=== PATIENT | male | born 1995 | race Two or more races ===

== ENCOUNTER 2021-05-16 12:31 | Emergency (ER) | payer MEDICAID, OTHER ==
[~2021-05-16] VITALS: Ht 170.2 cm; Wt 68.0 kg
[2021-05-16] MEDS ORDERED: SODIUM CHLORIDE 0.9% 1,000 ML IV ONE ×2 (12:45)
[2021-05-16 13:28] LABS: Basophils # (auto) 0.1 10 ^3/uL (0-0.2); Basophils % (auto) 0.4 % (0.0-2.0); Eosinophils # (auto) 0.2 10 ^3/uL (0-0.8); Hematocrit 47.4 % (41.0-53.0); Hemoglobin 15.7 g/dL (13.5-17.5); Lymphocytes # (auto) 1.4 10 ^3/uL (0.4-5.4); Lymphocytes % (auto) 9.1 % (10.0-50.0); Mean Corpuscular Hemoglobin 31.5 pg (28.0-32.0); Mean Corpuscular Hgb Conc. 33.2 g/dL (32.0-36.0); Monocytes # (auto) 1.3 10 ^3/uL (0-1.3); Monocytes % (auto) 8.6 % (0.0-12.0); Neutrophils # (auto) 12.6 10 ^3/uL (1.6-8.6); Neutrophils % (auto) 80.9 % (37.0-80.0); Red Blood Cells 4.99 10^6/uL (4.5-5.90); Red Cell Distribution Width 15.3 % (11.8-14.3); White Blood Cell 15.6 10^3/uL (4.4-10.8)
[2021-05-16 13:35] LABS: Albumin 3.9 g/dL (3.4-5.0); Calcium 8.7 mg/dL (8.5-10.1); Potassium 3.8 mmol/L (3.5-5.1)
[2021-05-16 13:39] LABS: BUN/Creatinine Ratio 6.6; Bilirubin, Total 0.4 mg/dL (0.2-1.0); Total Protein 7.7 g/dL (6.4-8.2)
[2021-05-16] MEDS ORDERED: KETOROLAC TROMETH 30 MG/ML 1ML VIAL ONE (14:47)
[2021-05-16] MEDS ORDERED: KETOROLAC TROMETH 30 MG/ML 1ML VIAL IV ONE (15:00)
[2021-05-16 16:52] LABS: Urine WBC None Seen /hpf (0 - 3)
[2021-05-16 17:02] LABS: Urine Bacteria FEW /hpf (None Seen); Urine Blood Negative /uL (Negative); Urine Mucus FEW (None Seen); Urine Specific Gravity 1.017 (1.001-1.035)
[2021-05-16 17:15] LABS: Alcohol, Urine < 3.0 mg/dL (0-10); Amphetamine Screen, Urine POSITIVE (NEGATIVE); Barbiturate Scree,Urine NEGATIVE (NEGATIVE); Benzodiazephine Screen, Urine NEGATIVE (NEGATIVE); Cannabinoid Screen, Urine POSITIVE (NEGATIVE); Cocaine Screen, Urine NEGATIVE (NEGATIVE); Opiate Scree,Urine NEGATIVE (NEGATIVE); Phencyclidine Screen, Urine NEGATIVE (NEGATIVE)
[2021-05-16] MEDS ORDERED: cefTRIAXone 1GM/50ML D5W 50 ML IV ONE (17:45)
[2021-05-16 18:00] VITALS: BP 93/54
== END 2021-05-16 18:56 | disposition home or self-care (01) ==
LOC: EDBD 12:31 → ER 12:31
DX: R10.84 Generalized abdominal pain (principal); F15.10 Other stimulant abuse, uncomplicated; F17.210 Nicotine dependence, cigarettes, uncomplicated
CPT/HCPCS: 36415; 74176; 80053; 80307; 81001; 83690; 85025; 93005; 96361; 96365; 96375; 99285; J0696; J1885; J7030

== ENCOUNTER 2023-05-02 23:41 | Emergency (ER) | payer SELFPAY ==
[~2023-05-02] VITALS: Ht 180.3 cm; Wt 90.1 kg
[2023-05-02 23:42] VITALS: BP 126/75; RESP 24; O2SAT 97
[2023-05-02 23:56] VITALS: PULSE 105
[2023-05-03 00:59] LABS: Basophils # (auto) 0 10 ^3/uL (0-0.2); Basophils % (auto) 0.5 % (0.0-2.0); Eosinophils # (auto) 0.1 10 ^3/uL (0-0.8); Eosinophils % (auto) 1.1 % (0.0-7.0); Hematocrit 43.9 % (41.0-53.0); Hemoglobin 14.8 g/dL (13.5-17.5); Lymphocytes # (auto) 2.7 10 ^3/uL (0.4-5.4); Mean Corpuscular Hgb Conc. 33.7 g/dL (32.0-36.0); Mean Corpuscular Volume 95.1 fL (80.0-100.0); Monocytes # (auto) 0.5 10 ^3/uL (0-1.3); Monocytes % (auto) 6.4 % (0.0-12.0); Neutrophils # (auto) 4.8 10 ^3/uL (1.6-8.6); Red Blood Cells 4.62 10^6/uL (4.5-5.90); Red Cell Distribution Width 13.4 % (11.8-14.3); White Blood Cell 8.1 10^3/uL (4.4-10.8)
[2023-05-03 01:22] LABS: Acetaminophen < 2.0 UG/ML (10.0-20.0)
[2023-05-03 01:23] LABS: Alanine Aminotransferase 15 U/L (7-40); Albumin 4.7 g/dL (3.2-4.8); Alkaline Phosphatase 49 U/L (46-116); Anion Gap 7 (5-15); Aspartate Aminotransferase 17 U/L (13-40); BUN/Creatinine Ratio 7.5 (10.0-20.0); Blood Urea Nitrogen 8 mg/dL (9-23); Calcium 9.6 mg/dL (8.7-10.4); Carbon Dioxide 24 mmol/L (20-30); Chloride 110 mmol/L (98-107); Glucose 89 mg/dL (74-106); Potassium 3.6 mmol/L (3.5-5.1); Salicylate < 3.0 mg/dL (2.8-20.0); Sodium 141 mmol/L (136-145)
[2023-05-03 01:24] LABS: Bilirubin, Total 0.9 mg/dL (0.2-1.0); Total Protein 7.2 g/dL (5.7-8.2)
[2023-05-03 01:27] LABS: Urine Bacteria NONE SEEN /hpf (None Seen); Urine Blood Negative /uL (Negative); Urine Clarity Clear (Clear); Urine Color Yellow (Yellow); Urine Mucus FEW (None Seen); Urine Protein, UAD 1+ (Negative); Urine Specific Gravity 1.028 (1.001-1.035); Urine WBC 1 /hpf (0 - 3)
[2023-05-03 01:34] LABS: Amphetamine Screen, Urine Pos (NEGATIVE); Barbiturate Scree,Urine Neg (NEGATIVE); Benzodiazephine Screen, Urine Neg (NEGATIVE); Cannabinoid Screen, Urine Pos (NEGATIVE); Cocaine Screen, Urine Neg (NEGATIVE); Opiate Scree,Urine Neg (NEGATIVE); Phencyclidine Screen, Urine Neg (NEGATIVE)
== END 2023-05-03 08:40 | disposition left against medical advice (07) ==
LOC: ER 23:41
DX: Z04.6 Encounter for general psychiatric examination, requested by authority (principal); F17.210 Nicotine dependence, cigarettes, uncomplicated; F15.10 Other stimulant abuse, uncomplicated
CPT/HCPCS: 36415; 80053; 80307; 80329; 81001; 84484; 85025; 93005

== ENCOUNTER 2023-05-16 03:10 | Emergency (ER) | payer SELFPAY ==
[~2023-05-16] VITALS: Ht 180.3 cm; Wt 72.7 kg
[2023-05-16 03:34] VITALS: BP 119/63; PULSE 105; RESP 18; TEMP 98.2
[2023-05-16 05:17] LABS: Rapid Influenza A Negative (Negative); Rapid Influenza B Negative (Negative)
[2023-05-16 05:18] LABS: COVID19 ANTIGEN SOFIA FIA NEGATIVE (NEGATIVE)
[2023-05-16] MEDS ORDERED: ACET500T58 PO (05:45)
[2023-05-16] MEDS ORDERED: AMOX875T4 PO (05:45)
[2023-05-16] MEDS ORDERED: PRED20TA2 PO (05:45)
[2023-05-16 06:08] VITALS: O2SAT 98
== END 2023-05-16 07:06 | disposition home or self-care (01) ==
LOC: ER 03:10
DX: J06.9 Acute upper respiratory infection, unspecified (principal); F12.10 Cannabis abuse, uncomplicated; F15.10 Other stimulant abuse, uncomplicated; F17.210 Nicotine dependence, cigarettes, uncomplicated; Z20.822 Contact with and (suspected) exposure to COVID-19
CPT/HCPCS: 36415; 87426; 87804

== ENCOUNTER 2023-06-17 00:08 | Emergency (ER) | payer SELFPAY ==
[~2023-06-17] VITALS: Ht 180.3 cm; Wt 60.0 kg
[~2023-06-17 00:08] MED LIST: ACET500T58 PO; AMOX875T4 PO; PRED20TA2 PO
[2023-06-17 00:54] VITALS: BP 138/78; TEMP 98.5; O2SAT 98
[2023-06-17] MEDS ORDERED: CEPH500C PO (04:08)
[2023-06-17] MEDS ORDERED: MUPI2OIN2 EX (04:08)
[2023-06-17] MEDS ORDERED: MUPIROCIN 2% OINT 15gm or 22gm TOP ONE (04:15)
[2023-06-17] MEDS ORDERED: TETANUS-DIPTH-ACEL PERTUSSIS 0.5ML SYR Tdap IM ONE (04:15)
[2023-06-17 05:40] VITALS: PULSE 103; RESP 20
== END 2023-06-17 04:51 | disposition home or self-care (01) ==
LOC: EDBD 00:08 → ER 00:08
DX: S00.83XA Contusion of other part of head, initial encounter (principal); S09.90XA Unspecified injury of head, initial encounter; R10.9 Unspecified abdominal pain; F12.10 Cannabis abuse, uncomplicated; F17.210 Nicotine dependence, cigarettes, uncomplicated; Y04.8XXA Assault by other bodily force, initial encounter; Y93.89 Activity, other specified; Y92.89 Other specified places as the place of occurrence of the external cause; Y99.8 Other external cause status
CPT/HCPCS: 70450; 74176; 90471; 90715

== ENCOUNTER 2023-08-19 00:02 | Emergency (ER) | payer SELFPAY ==
[~2023-08-19] VITALS: Ht 180.3 cm; Wt 76.0 kg
[~2023-08-19 00:02] MED LIST changes: +CEPH500C PO; +MUPI2OIN2 EX
[2023-08-19] MEDS ORDERED: CLIN300C70 PO (00:37)
[2023-08-19] MEDS ORDERED: IBUP-1455 PO (00:37)
[2023-08-19] MEDS ORDERED: BACDST PO (00:37)
[2023-08-19] MEDS ORDERED: MUPIROCIN 2% OINT 15gm or 22gm TOP ONE (00:45)
[2023-08-19] MEDS: HYDROcodone-ACET 5/325MG TAB PO ONE (02:51)
[2023-08-19] MEDS: KETOROLAC TROMETH 60MG/2ML VIAL IM ONE (02:53)
[2023-08-19] MEDS: TETANUS-DIPTH-ACEL PERTUSSIS 0.5ML SYR Tdap IM ONE (02:55)
[2023-08-19] MEDS: cefTRIAXone SOD 1,000 MG VL IM ONE (02:57)
[2023-08-19] MEDS: CLINDAMYCIN HCL 150 MG CAP PO ONE (04:32)
[2023-08-19 04:37] VITALS: BP 129/78; PULSE 97; RESP 20; TEMP 98
[2023-08-19 04:45] VITALS: O2SAT 98
[2023-08-19] MEDS: NEOMYCIN-BACITRACIN-POLYM UNITDOSE PKG TOP OINT TOP ONE (04:45)
== END 2023-08-19 04:50 | disposition home or self-care (01) ==
LOC: ER 00:02
DX: L02.512 Cutaneous abscess of left hand (principal); F17.210 Nicotine dependence, cigarettes, uncomplicated; F15.90 Other stimulant use, unspecified, uncomplicated; Z79.899 Other long term (current) drug therapy
CPT/HCPCS: 90471; 90715; 96372; 99284; J0696; J1885

== ENCOUNTER 2024-10-27 22:42 | Emergency (ER) | payer MEDICAID ==
[~2024-10-27] VITALS: Ht 180.3 cm; Wt 81.2 kg
[~2024-10-27 22:42] MED LIST changes: +BACDST PO; +CLIN1CAP70 PO; +IBUP-1455 PO
[2024-10-27 23:10] VITALS: BP 130/85; PULSE 117; TEMP 98.6
[2024-10-28] MEDS ORDERED: IBUP-1456 PO (01:08)
--- NOTE | 2024-10-28 01:08 | ED.PDOC ---
Eye-HPI HPI Comments 29-YEAR-OLD MALE PRESENTS TO ER WITH COMPLAINTS OF TOOTHACHE X3 YEARS. PATIENT REPORTS THAT HE HAS BEEN EXPERIENCING BILATERAL LOWER TOOTHACHE PAIN X3 DAYS THAT GOT WORSE X1 DAY PROMPTING HIM TO COME TO ER FOR FURTHER EVALUATION. HE RATES HIS BILATERAL LOWER TOOTHACHE PAIN A 6/10. DENIES USE OF MEDICATIONS FOR CURRENT SYMPTOMS. PATIENT PRESENTS TO ER AMBULATORY ON ARRIVAL, WITH STEADY GAIT, IN NO DISTRESS AND STATES HE HAS NOT FOLLOWED UP SINCE SYMPTOMS STARTED. DENIES FEVER, HEADACHE, SKIN CHANGES OR ANY FURTHER SYMPTOMS/COMPLAINTS Chief Complaint: Tooth Pain Time Seen by MD: 23:34 Primary Care Provider: Unknown Reviewed Notes: Nurses Notes, Medications, Allergies Allergies: Coded Allergies: NO KNOWN ALLERGIES (Unverified , 05/16/21) Home Meds Active Scripts Ibuprofen (Ibuprofen) 800 Mg Tab, 1 TAB PO TID PRN, #30 TAB 0 Refills Prov:ROLANDO REYNOLDS 10/28/24 Amoxicillin & Pot Clavulanate (Amoxicillin/Potassium Cla) 875 Mg Tab, 1 TAB PO BID for 7 Days, #14 TAB 0 Refills Prov:ROLANDO REYNOLDS 10/28/24 Mupirocin (Pseudomonas Fluores (Mupirocin) 2 % Oin, 1 APPLIC EX TID for 10 Days, #15 MG Apply to the affected area Prov:CAMRON PATE Q ADMISSIONS MANAGER 08/19/23 Ibuprofen Micronized (Ibuprofen) 800 Mg Tab, 1 TAB PO Q6HPRN PRN, #20 TAB as needed for pain Prov:CAMRON PATE Q ADMISSIONS MANAGER 08/19/23 Sulfamethoxazole W/Trimethopri (Bactrim Ds Tablet) 1 Tab Tb, 1 TAB PO BID for 10 Days, #20 TAB Prov:CAMRON PATE Q ADMISSIONS MANAGER 08/19/23 Clindamycin Hcl (Clindamycin Hcl) 300 Mg Cap, 1 CAP PO QID for 10 Days, #40 CAP Prov:CAMRON PATE ADMISSIONS MANAGER 08/19/23 Mupirocin (Pseudomonas Fluores (Mupirocin) 2 % Oin, 1 APPLIC EX TID for 10 Days, #15 MG Prov:CAMRON PATE Q ADMISSIONS MANAGER 06/17/23 Cephalexin Monohydrate (Cephalexin) 500 Mg Cap, 1 CAP PO TID for 10 Days, #30 CAP Prov:CAMRON PATE Q ADMISSIONS MANAGER 06/17/23 Prednisone (Prednisone) 20 Mg Tab, 20 MG PO BID for 5 Days, #10 TAB 0 Refills Prov:ROLANDO REYNOLDS 05/16/23 Amoxicillin & Pot Clavulanate (Amoxicillin/Potassium Cla) 875 Mg Tab, 1 TAB PO BID for 7 Days, #14 TAB 0 Refills Prov:ROLANDO REYNOLDS 05/16/23 Acetaminophen (Acetaminophen) 500 Mg Tab, 500 MG PO QIDP, #30 TAB 0 Refills Prov:ROLANDO REYNOLDS 05/16/23 Mode of Arrival: Ambulatory Past Medical History PAST MEDICAL HISTORY: Denies Surgical History: Denies all surgeries Family History Family History: Unknown Social History Smoker: Cigarettes, Less Than 1 Pack/Day Alcohol: Denies ETOH Use Drugs: Marijuana, Methamphetamine Lives In: Home Constitutional: denies: chills, diaphoresis, fatigue, fever, malaise, sweats, weakness, others EENTM: reports: others ( STATED IN HPI) Respiratory: denies: cough, hemoptysis, orthopnea, SOB at rest, shortness of breath, SOB with excertion, stridor, wheezing, others Cardiovascular: denies: chest pain, dizzy spells, diaphoresis, Dyspnea on exertion, edema, irregular heart beat, left arm pain, lightheadedness, palpitations, PND, syncope, others Gastrointestinal: denies: abdomen distended, abdominal pain, blood streaked bowels, constipated, diarrhea, dysphagia, difficulty swallowing, hematemesis, melena, nausea, poor appetite, poor fluid intake, rectal bleeding, rectal pain, vomiting, others Genitourinary: denies: burning, dysuria, flank pain, frequency, hematuria, incontinence, penile discharge, penile sore, pain, testicle pain, testicle swelling, urgency, others Neurological: denies: dizziness, fainting, headache, left sided numbness, left sided weakness, numbness, paresthesia, pre-existing deficit, right sided numbness, right sided weakness, seizure, speech problems, tingling, tremors, weakness, others Musculoskeletal: denies: back pain, gout, joint pain, joint swelling, muscle pain, muscle stiffness, neck pain, others Integumetry: denies: bruises, change in color, change in hair/nails, dryness, laceration, lesions, lumps, rash, wounds, others Allergic/Immunocompromised: denies: Difficulty Healing, Frequent Infections, H chandler, Itching, others Hematologic/Lymphatic: denies: anemia, blood clots, easy bleeding, easy bruising, swollen glands, others Endocrine: denies: excessive hunger, excessive sweating, excessive thirst, excessive urination, flushing, intolerance to cold, intolerance to heat, unexplained weight gain, unexplained weight loss, others Psychiatric: denies: anxiety, bipolar disorder, depression, hopeless, panic disorder, schizophrenia, sleepless, suicidal, others Physical Exam General Appearance: No Apparent Distress HEENT: PERRL/EOMI, Pharynx Normal, TMs Normal, Other (MILD SWELLING/ERYTHEMA NOTED SURROUNDING GUMS OF BILATERAL LOWER WISDOM TEETH WITHOUT BLEEDING/DRAINAGE. OVERALL VERY POOR DENTAL HYGIENE APPRECIATED. NO FACIAL SWELLING/SKIN CHANGES NOTED) Neck: Full Range of Motion, Non-Tender, Normal Respiratory: Chest Non-Tender, Lungs Clear, No Accessory Muscle Use, No Respiratory Distress, Normal Breath Sounds Cardiovascular: No Murmur, No Gallop, Regular Rate/Rhythm Breast Exam: Deferred Gastrointestinal: NOT DONE Genitalia: Deferred Pelvic: Deferred Rectal: Deferred Extremities: Normal capillary refill, Normal range of motion Neurologic: Alert, radiologic tech II-XII nml as Tested, No Motor Deficits, Normal Affect, Normal Mood, No Sensory Deficits Cerebellar Function: Normal Reflexes: Normal Skin: Dry, Normal Color, Warm Lymphatic: No Adenopathy Was a procedure done? Was a procedure done?: No Sedation Sedation?: No EENT DIFF Eye: N/A Mouth: Thrush, Other (DENTAL ABSCESS, AUGUSTUS'S ANGINA) X-Ray, Labs, Meds, VS Vital Signs Date Time Temp Pulse Resp B/P (MAP) Pulse Ox O2 Delivery O2 Flow Rate FiO2 10/27/24 23:10 98.6 117 20 130/85 (100) 97 98.6 PATIENT IN NO DISTRESS DURING ER VISIT/PRIOR TO DISCHARGE SMOKING/CANNABIS/METHAMPHETAMINE CESSATION DISCUSSED AND ADVISED ADVISED TO FOLLOW UP WITH PCP AND DENTIST IN 1-2 DAYS PATIENT VERBALIZED UNDERSTANDING AND AGREEABLE WITH CURRENT PLAN OF CARE ADVISED TO RETURN TO ER IMMEDIATELY IF SYMPTOMS WORSE Time of 1ST Reevaluation: 00:40 Reevaluation 1ST: N/A Patient Education/Counseling: Diagnosis, Treatment, Prognosis, Need For Follow Up Family Education/Counseling: No Family Present Departure 1 Departure Time of Disposition: :02 Impression: Primary Impression: Dental infection Additional Impression: Polysubstance abuse Disposition: 01 HOME / SELF CARE / HOMELESS Condition: Stable e-Prescriptions Ibuprofen (Ibuprofen) 800 Mg Tab 1 TAB PO TID PRN, #30 TAB 0 Refills Prov: ROLANDO REYNOLDS 10/28/24 Amoxicillin & Pot Clavulanate (Amoxicillin/Potassium Cla) 875 Mg Tab 1 TAB PO BID for 7 Days, #14 TAB 0 Refills Prov: ROLANDO REYNOLDS 10/28/24 Discharged With: Self Critical Care Note Critical Care Time?: No Stability Stability form required: No Heart Score Heart Score: Heart Score Response (Comments) Value History N/A 0 EKG N/A 0 Age N/A 0 Risk Factors N/A 0 Troponin N/A 0 Total 0 ROLANDO REYNOLDS Oct 28, 2024 01:08
[2024-10-28 01:09] VITALS: RESP 16; O2SAT 97
== END 2024-10-28 01:12 | disposition home or self-care (01) ==
LOC: ER 22:42
DX: K04.7 Periapical abscess without sinus (principal); F19.10 Other psychoactive substance abuse, uncomplicated; F17.210 Nicotine dependence, cigarettes, uncomplicated

== ENCOUNTER 2024-11-12 10:07 | Emergency (ER) | payer MEDICAID ==
[~2024-11-12] VITALS: Ht 180.3 cm; Wt 85.7 kg
[~2024-11-12 10:07] MED LIST changes: +IBUP-1456 PO
[2024-11-12 11:26] VITALS: BP 116/95; PULSE 105; RESP 17; TEMP 97.9; O2SAT 96
[2024-11-12] MEDS: TETANUS-DIPTH-ACEL PERTUSSIS 0.5ML SYR Tdap IM ONE (12:19)
[2024-11-12] MEDS: KETOROLAC TROMETH 30 MG/ML 1ML VIAL IM ONE (12:19)
[2024-11-12] MEDS ORDERED: CEPH500C PO (12:30)
--- NOTE | 2024-11-12 12:30 | ED.PDOC ---
Musculoskeletal HPI Comments 29-year-old male presents for a puncture wound to the left foot. Reports stepping on a wooden stick. Onset occurred yesterday at 12:00 p.m.. Able to ambulate without assistive devices. Last tetanus unknown Chief Complaint: Puncture Wound Time Seen by MD: 10:28 Primary Care Provider: NONE Reviewed Notes: Nurses Notes, Medications, Allergies Allergies: Coded Allergies: NO KNOWN ALLERGIES (Unverified , 05/16/21) Home Meds Active Scripts Cephalexin Monohydrate (Cephalexin) 500 Mg Cap, 1 CAP PO QID for 5 Days, #20 CAP 0 Refills Prov:SRINIVASAN GOETZ LEAD MACHINIST 11/12/24 Ibuprofen (Ibuprofen) 800 Mg Tab, 1 TAB PO TID PRN, #30 TAB 0 Refills Prov:ROLANDO REYNOLDS 10/28/24 Amoxicillin & Pot Clavulanate (Amoxicillin/Potassium Cla) 875 Mg Tab, 1 TAB PO BID for 7 Days, #14 TAB 0 Refills Prov:ROLANDO REYNOLDS 10/28/24 Mupirocin (Pseudomonas Fluores (Mupirocin) 2 % Oin, 1 APPLIC EX TID for 10 Days, #15 MG Apply to the affected area Prov:SHENA PATEA Q LEAD MACHINIST 08/19/23 Ibuprofen Micronized (Ibuprofen) 800 Mg Tab, 1 TAB PO Q6HPRN PRN, #20 TAB as needed for pain Prov:CAMRON PATE Q LEAD MACHINIST 08/19/23 Sulfamethoxazole W/Trimethopri (Bactrim Ds Tablet) 1 Tab Tb, 1 TAB PO BID for 10 Days, #20 TAB Prov:CAMRON PATE Q LEAD MACHINIST 08/19/23 Clindamycin Hcl (Clindamycin Hcl) 300 Mg Cap, 1 CAP PO QID for 10 Days, #40 CAP Prov:SHENA PATEA Q LEAD MACHINIST 08/19/23 Mupirocin (Pseudomonas Fluores (Mupirocin) 2 % Oin, 1 APPLIC EX TID for 10 Days, #15 MG Prov:CAMRON PATE Q LEAD MACHINIST 06/17/23 Cephalexin Monohydrate (Cephalexin) 500 Mg Cap, 1 CAP PO TID for 10 Days, #30 CAP Prov:SHENA PATEA Q LEAD MACHINIST 06/17/23 Prednisone (Prednisone) 20 Mg Tab, 20 MG PO BID for 5 Days, #10 TAB 0 Refills Prov:ROLANDO REYNOLDS TYLER 05/16/23 Amoxicillin & Pot Clavulanate (Amoxicillin/Potassium Cla) 875 Mg Tab, 1 TAB PO BID for 7 Days, #14 TAB 0 Refills Prov:ROLANDO REYNOLDS T[place]ER 05/16/23 Acetaminophen (Acetaminophen) 500 Mg Tab, 500 MG PO QIDP, #30 TAB 0 Refills Prov:ROLANDO REYNOLDS T[place]ER 05/16/23 Information Source: Patient Mode of Arrival: Ambulatory Past Medical History PAST MEDICAL HISTORY: Denies Surgical History: Denies all surgeries Family History Family History: Unknown Social History Smoker: Cigarettes, Less Than 1 Pack/Day Alcohol: Denies ETOH Use Drugs: Marijuana, Methamphetamine Lives In: Home All Other Systems: Reviewed and Negative (per HPI) Physical Exam General Appearance: No Apparent Distress, Normal HEENT: Normal ENT Inspection, Pharynx Normal, TMs Normal Neck: Full Range of Motion, Non-Tender, Normal, Normal Inspection Respiratory: Chest Non-Tender, Lungs Clear, No Accessory Muscle Use, No Respiratory Distress, Normal Breath Sounds Cardiovascular: No Edema, No JVD, No Murmur, No Gallop, Normal Peripheral Pulses, Regular Rate/Rhythm Breast Exam: Deferred Gastrointestinal: No Organomegaly, Non Tender, No Pulsatile Mass, Normal Bowel Sounds, Soft Genitalia: Deferred Pelvic: Deferred Rectal: Deferred Extremities: No calf tenderness, Normal capillary refill, Normal inspection, Normal range of motion, Non-tender, No pedal edema Musculoskeletal : Apperance: Normal Neurologic: Alert, telecine operator II-XII nml as Tested, No Motor Deficits, Normal Affect, Normal Mood, No Sensory Deficits Cerebellar Function: Normal Reflexes: Normal Skin: Dry, Normal Color, Warm Lymphatic: No Adenopathy Was a procedure done? Was a procedure done?: No Images 1 - 1 mm puncture wound. Hemostasis. No signs of foreign body. No erythema. No TTP Differential Diagnosis EXT Differential Diagnosis: Other X-Ray, Labs, Meds, VS Vital Signs Date Time Temp Pulse Resp B/P (MAP) Pulse Ox O2 Delivery O2 Flow Rate FiO2 11/12/24 11:26 105 17 96 Room Air 11/12/24 11:26 97.9 105 17 116/95 (102) 96 97.9 11/12/24 10:50 97.9 105 17 116/95 (102) 96 97.9 Current Medications Medications (Trade) Dose Ordered Sig/Ander Route Start Time Stop Time Status Last Admin Diphtheria/ Tetanus/Acell Pertussis (Boostrix T-Dap) 0.5 ml ONCE ONCE IM 11/12/24 12:15 11/12/24 12:16 DC 11/12/24 12:19 Ketorolac Tromethamine (Toradol Injection) 30 mg ONCE ONCE IM 11/12/24 12:15 11/12/24 12:16 DC 11/12/24 12:19 X-Ray, Labs, Meds, VS Comment Patient presents for a puncture wound. Based on the history exam and test performed there does not seem to be a retained foreign body or serious injury at this time. Patient ambulating without assistive devices. The wound appears clean with no evidence of purulent discharge. Tetanus was updated. The wound was cleansed with the jet irrigation in the emergency department. After copious irrigation wound was covered with a Band-Aid. We will let the wound heal by secondary intention. And based on show decision-making patient agreed to empiric treatment. Strict return precautions discussed if symptoms do not improve Time of 1ST Reevaluation: 12:19 Reevaluation 1ST: Improved Patient Education/Counseling: Diagnosis, Treatment Family Education/Counseling: Diagnosis, Treatment Departure 1 Departure Time of Disposition: 12:30 Impression: Primary Impression: Puncture wound of foot Qualified Codes: S91.332A - Puncture wound without foreign body, left foot, initial encounter Disposition: HOME / SELF CARE / HOMELESS Condition: Stable e-Prescriptions Cephalexin Monohydrate (Cephalexin) 500 Mg Cap 1 CAP PO QID for 5 Days, #20 CAP 0 Refills Prov: SRINIVASAN GOETZ NP 11/12/24 Critical Care Note Critical Care Time?: No Stability Stability form required: No Heart Score Heart Score: Heart Score Response (Comments) Value History N/A 0 EKG N/A 0 Age N/A 0 Risk Factors N/A 0 Troponin N/A 0 Total 0 SRINIVASAN GOETZ NP November 12, 2024 12:30
== END 2024-11-12 12:29 | disposition home or self-care (01) ==
LOC: ER 10:07
DX: S91.332A Puncture wound without foreign body, left foot, initial encounter (principal); F17.210 Nicotine dependence, cigarettes, uncomplicated; W22.8XXA Striking against or struck by other objects, initial encounter; Y93.89 Activity, other specified; Y92.89 Other specified places as the place of occurrence of the external cause; Y99.8 Other external cause status
CPT/HCPCS: 90471; 96372